=== PATIENT | female | born 1945 ===

== ENCOUNTER 2021-06-21 06:22 | Day surgery (SDC) | payer OTHER | END 2021-06-21 10:40 | disposition home or self-care (01) | LOC: AMB-ENDOS 06:22 | PROVIDERS: ATTEND Surgery | DX: D12.3 Benign neoplasm of transverse colon (principal); D12.5 Benign neoplasm of sigmoid colon; K66.0 Peritoneal adhesions (postprocedural) (postinfection); K57.30 Diverticulosis of large intestine without perforation or abscess without bleeding; Z88.0 Allergy status to penicillin; Z88.6 Allergy status to analgesic agent ==

== ENCOUNTER 2022-10-05 16:39 | Inpatient (IN) | payer OTHER ==
[~2022-10-05] VITALS: Ht 157.5 cm; Wt 62.6 kg
[2022-10-06] MEDS ORDERED: LEVOTHYROXINE25 MCG PO (14:48)
[2022-10-06] MEDS ORDERED: HUMULIN 70100 UNIT/2 (14:49)
[2022-10-06] MEDS ORDERED: METFORMIN HCL500 MG PO (14:49)
[2022-10-06] MEDS ORDERED: NTG (14:50)
[2022-10-06] MEDS ORDERED: TAGAMET PO (14:50)
[2022-10-06] MEDS ORDERED: CARVEDILOL3.125 MG PO (14:51)
[2022-10-06] MEDS ORDERED: COZAAR100 MG PO (14:51)
[2022-10-06] MEDS ORDERED: HORIZANT300 MG PO (14:52)
[2022-10-06] MEDS ORDERED: RANEXA PO (14:53)
[2022-10-10] MEDS ORDERED: ESTRADIOL42.5 GM (15:01)
[2022-10-10] MEDS ORDERED: RANOLAZINE ER500 MG (15:01)
[2022-10-10] MEDS ORDERED: CIMETIDINE400 MG (15:01)
[2022-10-10] MEDS ORDERED: FLONASE16 GM (15:01)
[2022-10-10] MEDS ORDERED: DESMOPRESSIN A0.2 MG (15:01)
[2022-10-10] MEDS ORDERED: LEVALBUTEROL TA15 GM (15:01)
[2022-10-10] MEDS ORDERED: SIMVASTATIN10 MG (15:02)
[2022-10-10] MEDS ORDERED: AMLODIPINE BESYL5 MG (15:02)
[2022-10-10] MEDS ORDERED: LATANOPROST2.5 ML (15:02)
[2022-10-10] MEDS ORDERED: METFORMIN HCL500 M4 (15:02)
[2022-10-10] MEDS ORDERED: PROLIA60 MG/1 ML (15:02)
[2022-10-10] MEDS ORDERED: EZETIMIBE10 MG (15:02)
[2022-10-10] MEDS ORDERED: FAMOTIDINE40 MG (15:02)
[2022-10-10] MEDS ORDERED: FOLIC ACID1 MG (15:03)
[2022-10-10] MEDS ORDERED: ISOSORBIDE MONO60 M2 (15:03)
[2022-10-13] MEDS ORDERED: HYOSCYAMINE0.125 M1 SL (18:01)
[2022-10-13] MEDS ORDERED: INTESTINEX680 M1 PO (18:02)
[2022-10-13] MEDS ORDERED: MIRALAX17 GM PO (18:03)
[2022-10-13] MEDS ORDERED: TRAM1TAB98 PO (18:04)
== END 2022-10-14 10:14 | disposition home or self-care (01) | DRG 330 ==
LOC: SURH 10-10 07:00 → O/R 10-10 08:14 → SURH 10-10 10:00
PROVIDERS: ADMIT Surgery; ATTEND Surgery
PROC: 0DNH4ZZ Release Cecum, Percutaneous Endoscopic Approach (ICD-10-PCS; 2022-10-10)
PROC: 0DNB4ZZ Release Ileum, Percutaneous Endoscopic Approach (ICD-10-PCS; 2022-10-10)
PROC: 3E0F7SF Introduction of Other Gas into Respiratory Tract, Via Natural or Artificial Opening (ICD-10-PCS; 2022-10-10)
PROC: 0DTF4ZZ Resection of Right Large Intestine, Percutaneous Endoscopic Approach (ICD-10-PCS; principal; 2022-10-10 07:00)
DX: D12.2 Benign neoplasm of ascending colon (principal); K56.50 Intestinal adhesions [bands], unspecified as to partial versus complete obstruction; N99.4 Postprocedural pelvic peritoneal adhesions; K57.30 Diverticulosis of large intestine without perforation or abscess without bleeding; K59.09 Other constipation; I11.9 Hypertensive heart disease without heart failure; I25.10 Atherosclerotic heart disease of native coronary artery without angina pectoris; E11.9 Type 2 diabetes mellitus without complications; E03.9 Hypothyroidism, unspecified